=== PATIENT | male | born 1965 ===

== ENCOUNTER 2020-02-12 11:21 | Outpatient (REF) | payer MEDICAID, SELFPAY ==
[2020-02-12 12:01] LABS: BUN 28 mg/dL (7-18); CREATININE 1.76 mg/dL (0.70-1.30); Calcium 9.4 mg/dL (8.5-10.1); Chloride 103 mmol/L (98-107); Estimated GFR 40.55 (mL/min/1.73m2); Glucose 100 mg/dL (74-106); Potassium 3.7 mmol/L (3.5-5.1); Sodium 140 mmol/L (136-145)
== END 2020-02-12 11:41 ==
LOC: LBN 11:21
PROVIDERS: Visit Provider Internal Medicine
DX: I63.9 Cerebral infarction, unspecified (principal)
CPT/HCPCS: 80048